=== PATIENT | female | born 1985 | race Caucasian/White ===

== ENCOUNTER 2018-04-12 16:58 | Emergency (ER) | payer SELFPAY ==
[~2018-04-12] VITALS: Ht 165.1 cm; Wt 92.8 kg
[2018-04-12 16:58] VITALS: BP 139/88
[~2018-04-12 16:58] MED LIST: IBUP-1222 PO; OXYC-302 PO
[2018-04-12] MEDS ORDERED: LIDOCAINE-MPF 2% ,5ML ONE (17:48)
[2018-04-12] MEDS ORDERED: PROPARACAINE OPHTH 0.5%, 15ML ONE (17:50)
[2018-04-12] MEDS ORDERED: PROPARACAINE OPHTH 0.5%, 15ML EACHEYE ONE (18:00)
== END 2018-04-12 19:10 | disposition home or self-care (01) ==
LOC: ED 17:30
DX: H10.232 Serous conjunctivitis, except viral, left eye (principal); B30.9 Viral conjunctivitis, unspecified
CPT/HCPCS: 99282

== ENCOUNTER 2018-04-20 11:53 | Emergency (ER) | payer SELFPAY ==
[~2018-04-20] VITALS: Ht 165.1 cm; Wt 92.6 kg
[2018-04-20 11:56] VITALS: BP 144/92
[2018-04-20] MEDS ORDERED: PROPARACAINE OPHTH 0.5%, 15ML ONE (12:14)
[2018-04-20] MEDS ORDERED: PROPARACAINE OPHTH 0.5%, 15ML EACHEYE ONE (12:30)
[2018-04-20] MEDS: FLUORESCEIN OPHTHALMIC 1 MG STRIP EACHEYE ONE (12:30)
== END 2018-04-20 12:43 | disposition home or self-care (01) ==
LOC: ED 12:15
DX: H10.022 Other mucopurulent conjunctivitis, left eye (principal); H57.12 Ocular pain, left eye; Z98.51 Tubal ligation status
CPT/HCPCS: 99283